=== PATIENT | female | born 1985 | race American Indian/Alaskan Native ===

== ENCOUNTER 2017-11-18 23:45 | Emergency (ER) | payer OTHER ==
[2017-11-19 00:10] VITALS: BP 110/71
[2017-11-19] MEDS ORDERED: MOTRIN PO ONE (05:00)
[2017-11-19] MEDS ORDERED: MOTRIN ONE (05:16)
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
== END 2017-11-19 06:35 | disposition home or self-care (01) ==
LOC: ED 23:45
DX: S46.812A Strain of other muscles, fascia and tendons at shoulder and upper arm level, left arm, initial encounter (principal); V49.40XA Driver injured in collision with unspecified motor vehicles in traffic accident, initial encounter; Y93.89 Activity, other specified; Y92.89 Other specified places as the place of occurrence of the external cause; Y99.8 Other external cause status
CPT/HCPCS: 99282

== ENCOUNTER 2018-10-07 17:19 | Emergency (ER) | payer OTHER ==
[2018-10-07 17:33] VITALS: BP 156/100
[2018-10-07 18:49] LABS: Hematocrit 37.4 % (30.3-42.9); Hemoglobin 12.6 gm/dl (10.1-14.3); Mean Corpuscular HGB Conc 34 % (30-34); Mean Corpuscular Volume 96 fl (79-97); Platelet Count 241 K/mm3 (140-440); Red Blood Count 3.88 M/mm3 (3.65-5.03); Red Cell Distribution Width 12.7 % (13.2-15.2)
[2018-10-07 19:08] LABS: BUN/Creatinine Ratio 10; Blood Urea Nitrogen 6 mg/dL (7-17); Calcium 9.3 mg/dL (8.4-10.2); Hemolysis Index 5
--- NOTE | 2018-10-07 19:09 | Emergency Department Report ---
Addendum entered and electronically signed by LOAN PARRISH FNP 10/07/18 21:15: Patient left against medical advice from ultrasound department. The IV was removed prior to transport ultrasound. Signed AMA is on chart. Addendum entered and electronically signed by LOAN PARRISH FNP 10/07/18 20:24: Patient decided to stay and refuse IV site and fluids. Patient is in Ultrasound. Original Note: Vomiting/Diarrhea - HPI Chief Complaint: Abdominal Pain Stated Complaint: 9WKS/VOMIT/CHILLS/SHIVERS Duration: 2 weeks Severity: moderate Nausea/Vomiting Severity: Severe Diarrhea Severity: None Pain Location: Generalized Pain Severity: Mild Symptoms: Yes Recent use of Antibiotics (currently taking metronidazole), No Watery Diarrhea, No Bloody diarrhea, No Fever, No Able to Tolerate Fluids, No Recent Unusual Foods, No Recent Untreated Water, No Family w/ Similar Symptoms, No Contacts w/ Similar Symptoms, No Rash, No Hematuria, No Recent URI Symptoms Other History: This is a 32-year-old [place] female that is 9 weeks who presents with nausea, vomiting, and pelvic cramps for 2 weeks. The patient states she is seeing Dr. Goodman at [facility]. She reports nausea and vomiting 3 times every hour. She is currently taking Zofran. In the past she was given Phenergan suppositories, Reglan, and dark lesions with no improvement in symptoms. Patient states [facility] is at the final step would possibly be a result. I'll she doesn't follow-up with him until October 23. She reports diffuse abdominal cramping. The past 2 weeks. She is currently taking antibiotics for trichomoniasis and a UTI. Patient states she cannot take medications daily nausea and vomiting. She denies chest pain, given discharge, vaginal bleeding, frequency, urgency, dysuria, or dizziness. ED Review of Systems ROS: Stated complaint: 9WKS/VOMIT/CHILLS/SHIVERS Other details as noted in HPI Constitutional: denies: chills, fever Respiratory: denies: cough, shortness of breath, wheezing Cardiovascular: denies: chest pain, palpitations Gastrointestinal: abdominal pain, nausea, vomiting. denies: diarrhea Genitourinary: denies: urgency, dysuria, discharge Musculoskeletal: denies: back pain Neurological: denies: headache, weakness, paresthesias Psychiatric: denies: anxiety, depression ED Past Medical Hx - Past Medical History Hx Congestive Heart Failure: No Hx Diabetes: No Hx Asthma: Yes (as a child) Hx COPD: No Hx HIV: No - Surgical History Additional Surgical History: - Social History Smoking Status: Never Smoker Substance Use Type: None - Medications Home Medications: Home Medications Medication Instructions Recorded Confirmed Last Taken Type Zolpidem [Ambien] 5 mg PO QHS PRN #14 tablet 02/08/14 10/05/14 Unknown Rx Ondansetron (Nf) [Zofran] 8 mg PO Q8HR PRN #20 tablet 10/02/14 10/05/14 10/04/14 17:00 Rx Metoclopramide [Reglan TAB] 10 mg PO Q6H #120 tablet 10/08/14 Unknown Rx Ondansetron [Zofran ODT TAB] 8 mg PO Q8H #90 tab.rapdis 10/08/14 Unknown Rx Cyclobenzaprine HCl [Flexeril 5 MG 5 mg PO TID PRN #20 tab 11/19/17 Unknown Rx TAB] Ibuprofen 800 mg PO Q6H PRN #20 tablet 11/19/17 Unknown Rx Vomiting Diarrhea Exam - Exam General: Vital signs noted. No distress. Alert and acting appropriately. HEENT: Yes Pharyngeal Erythema (erythematous posterior pharynx, uvula midline), Yes Moist Mucous Membranes, No Pharyngeal Exudates, No Rhinorrhea, No Conjuctival Injection, No Frontal Tenderness, No Maxillary Tenderness Neck: No Adenopathy, No Rigidity Lungs: Yes Clear Lung Sounds, Yes Good Air Exchange, No Wheezes, No Stridor, No Cough, No Nasal Flaring, No Retractions, No Use of Accessory Muscles Heart exam: Regular: Yes, Murmur: No, Tachycardia: No Abdomen: Tenderness: Yes (left upper quadrant and right lower quadrant), Peritoneal Signs: No, Distention: No, Hyperactive Bowel sounds: No Skin exam: Rash: No, Edema: No, Normal turgor: Yes Neurologic: Alert and oriented, no deficits. Musculoskeletal: Unremarkable. ED Course Vital Signs 10/07/18 17:28 Temperature 99.1 F Pulse Rate 106 H Respiratory 20 Rate Blood Pressure 156/100 O2 Sat by Pulse 98 Oximetry ED Medical Decision Making - Lab Data Result diagrams: 10/07/18 18:23 10/07/18 18:23 Lab Results 10/07/18 10/07/18 10/07/18 Range/Units 18:23 18:23 19:15 WBC 7.5 (4.5-11.0) K/mm3 RBC 3.88 (3.65-5.03) M/mm3 Hgb 12.6 (10.1-14.3) gm/dl Hct 37.4 (30.3-42.9) % MCV 96 (79-97) fl MCH 32 (28-32) pg MCHC 34 (30-34) % RDW 12.7 L (13.2-15.2) % Plt Count 241 (140-440) K/mm3 Sodium 139 (137-145) mmol/L Potassium 3.8 (3.6-5.0) mmol/L Chloride 102.8 (98-107) mmol/L Carbon Dioxide 28 (22-30) mmol/L Anion Gap 12 mmol/L BUN 6 L (7-17) mg/dL Creatinine 0.6 L (0.7-1.2) mg/dL Estimated GFR > 60 ml/min BUN/Creatinine Ratio 10 % Glucose 130 H (65-100) mg/dL Calcium 9.3 (8.4-10.2) mg/dL HCG, Quant [id number] H (0-4) mIU/mL - Medical Decision Making This is a 32 y.o. female presents with nausea, vomiting, and abdominal cramping for 2 weeks. Patient is 9 weeks . Patient was examined by me. Vitals are normal and patient is in no acute distress. Obtained a CBC, CMP, hCG quant, and OB ultrasound. Quant [id number] all other labs unremarkable. IV site. Patient given normal saline 1 L bolus and Reglan 10 mg IV. The nurse informed me of patient's complaint of IV burning. Evaluated IV site, no signs of infiltration. The nurse informed me of patients decision to leave AMA, because she continues to have nausea and vomiting. Discussed options with the patient refused. Patient signed AMA and left unit. Critical care attestation.: If time is entered above; I have spent that time in minutes in the direct care of this critically ill patient, excluding procedure time. ED Disposition Clinical Impression: Left against medical advice Disposition: DC-07 LEFT AGAINST MED ADVICE Is pt being admited?: No Condition: Stable Instructions: Abdominal Pain (ED) Referrals: [facility] [Other] - 3-5 Days Forms: AMA Form
[2018-10-07] MEDS ORDERED: REGLAN IV ONE (19:10)
[2018-10-07] MEDS ORDERED: NACL 0.9% 1000 ML 1,000 ML IV ONE (19:10)
== END 2018-10-07 21:00 | disposition left against medical advice (07) ==
LOC: ED 17:19
DX: O21.9 Vomiting of pregnancy, unspecified (principal); O99.511 Diseases of the respiratory system complicating pregnancy, first trimester; J45.909 Unspecified asthma, uncomplicated; Z3A.09 9 weeks gestation of pregnancy
CPT/HCPCS: 36415; 80048; 84702; 85027; 96361; 96374; 99283; J2765; J7030